=== PATIENT | female | born 1975 | race African-American/Black ===

== ENCOUNTER 2022-09-25 20:50 | Emergency (ER) | payer BC ==
[~2022-09-25] VITALS: Ht 162.6 cm; Wt 85.0 kg
[2022-09-26] MEDS ORDERED: ASPIRIN 81MG TABLET PO ONE (01:45)
[2022-09-26] MEDS ORDERED: NITROGLYCERIN 0.4MG TABLET SL SL PRN (01:45)
[2022-09-26 02:23] LABS: BASOPHILS % 0.8 % (0.0-2.0); EOSINOPHILS % 1.5 % (0.0-5.0); HEMATOCRIT. 42.7 % (36.0-48.0); HEMOGLOBIN. 14.1 g/dL (12.0-16.0); LYMPHOCYTES % 46.1 % (20.0-50.0); MEAN CORPUSCULAR HEMOGLOBIN 26.7 pg (28.0-32.0); MEAN CORPUSCULAR VOLUME 80.4 fL (81.0-99.0); MEAN PLATELET VOLUME 7.7 fl (7.4-10.4); NEUTROPHILS % 43.6 % (40.0-76.0); PLATELET 300 x1000/uL (130-400); RED BLOOD CELL COUNT 5.31 mill/uL (4.2-5.4); RED CELL DISTRIBUTION WIDTH 16.2 % (11.6-14.6)
[2022-09-26 02:32] LABS: CHLORIDE 101 mEq/L (98-107)
[2022-09-26 02:42] LABS: ETHANOL BLOOD < 10 mg/dL
[2022-09-26 03:11] LABS: *AMPHETAMINES SCREEN URINE NEGATIVE (NEGATIVE); *BARBITURATES SCREEN URINE NEGATIVE (NEGATIVE); *BENZODIAZEPINES SCREEN URINE NEGATIVE (NEGATIVE); *COCAINE SCREEN URINE NEGATIVE (NEGATIVE); CANNABINOID URINE SCREEN NEGATIVE (NEGATIVE); METHADONE URINE SCREEN NEGATIVE (NEGATIVE); OPIATES URINE SCREEN NEGATIVE (NEGATIVE); PHENCYCLIDINE URINE SCREEN NEGATIVE (NEGATIVE)
[2022-09-26] MEDS ORDERED: IBUP-2029 MT ×3 (04:33→05:32)
[2022-09-26 04:56] VITALS: BP 110/62
== END 2022-09-26 05:46 | disposition home or self-care (01) ==
LOC: ER 21:28
DX: R07.89 Other chest pain (principal); M25.512 Pain in left shoulder; I10 Essential (primary) hypertension; E11.9 Type 2 diabetes mellitus without complications; Z98.890 Other specified postprocedural states
CPT/HCPCS: 36415; 71045; 80053; 80305; 80320; 83690; 83880; 84484; 85025; 93005; 99285; Z7610; G0480